=== PATIENT | female | born 1990 | race Caucasian/White ===

== ENCOUNTER 2016-06-19 00:45 | Emergency (ER) | payer BC ==
[2016-06-19] MEDS ORDERED: TRI-SPRINTEC T1 EACH PO (00:55)
[2016-06-19 02:30] VITALS: BP 108/65
== END 2016-06-19 02:30 | disposition home or self-care (01) ==
LOC: ED 00:45
DX: R04.0 Epistaxis (principal)

== ENCOUNTER → 2018-05-08 | Outpatient (CLI) | payer BC ==
[~2018-05-08] MED LIST: TRI-SPRINTEC T1 EACH PO
== END ==
LOC: LAB 11:02
DX: J02.9 Acute pharyngitis, unspecified (principal)

== ENCOUNTER 2020-06-28 19:41 | Emergency (ER) | payer OTHER ==
[2020-06-28] MEDS ORDERED: PRENATAL 19 CH1 EACH PO (20:18)
[2020-06-28 21:46] VITALS: BP 125/74
== END 2020-06-28 21:47 | disposition home or self-care (01) ==
LOC: ED 19:41
DX: S92.531A Displaced fracture of distal phalanx of right lesser toe(s), initial encounter for closed fracture (principal); W22.03XA Walked into furniture, initial encounter; Y92.89 Other specified places as the place of occurrence of the external cause

== ENCOUNTER → 2021-02-02 | Outpatient (CLI) | payer OTHER ==
[~2021-02-02] MED LIST changes: +PRENATAL 19 CH1 EACH PO
== END ==
LOC: LAB 08:52
DX: J02.9 Acute pharyngitis, unspecified (principal)

== ENCOUNTER → 2021-02-03 | Outpatient (CLI) | payer OTHER | LOC: LAB 12:53 | DX: Z20.822 Contact with and (suspected) exposure to COVID-19 (principal) ==

== ENCOUNTER 2022-08-12 11:57 | Emergency (ER) | payer OTHER ==
[~2022-08-12] VITALS: Ht 177.8 cm; Wt 88.4 kg
[2022-08-12] MEDS ORDERED: TRI-SPRINTEC T1 EACH PO (12:25)
[2022-08-12] MEDS ORDERED: CYCLOBENZAPRINE10 M1 PO (13:25)
[2022-08-12 13:52] VITALS: BP 122/89
== END 2022-08-12 14:10 | disposition home or self-care (01) ==
LOC: ED 11:57
DX: S70.02XA Contusion of left hip, initial encounter (principal); S70.12XA Contusion of left thigh, initial encounter; Z28.310 Unvaccinated for COVID-19; V89.2XXA Person injured in unspecified motor-vehicle accident, traffic, initial encounter; Y92.410 Unspecified street and highway as the place of occurrence of the external cause

== ENCOUNTER 2023-06-01 06:52 | Emergency (ER) | payer OTHER ==
[~2023-06-01] VITALS: Ht 177.8 cm; Wt 88.6 kg
[~2023-06-01 06:52] MED LIST changes: +CYCLOBENZAPRINE10 M1 PO
[2023-06-01 06:56] VITALS: BP 121/83
[2023-06-01 08:03] LABS: PH-URINE 5.5 (5.0 - 8.0); URINE APPEARANCE SLIGHTLY CLOUDY (CLEAR); URINE BILIRUBIN NEGATIVE (NEGATIVE); URINE BLOOD 3+ (NEGATIVE); URINE COLOR YELLOW (YELLOW); URINE GLUCOSE NEGATIVE (NEGATIVE); URINE KETONE NEGATIVE (NEGATIVE); URINE LEUKOCYTE ESTERASE NEGATIVE (NEGATIVE); URINE NITRATE NEGATIVE (NEGATIVE); URINE PROTEIN(semi-quant) 3+ (NEGATIVE)
[2023-06-01 08:04] LABS: URINE MUCUS PRESENT (NOT PRESENT)
[2023-06-01] MEDS ORDERED: PYRIDIUM200 M2 PO (09:09)
[2023-06-01] MEDS ORDERED: ACETAMINOPHEN-H1 TA2 PO (09:09)
== END 2023-06-01 09:25 | disposition home or self-care (01) ==
LOC: ED 06:52
PROVIDERS: Physician Assistant
DX: N20.1 Calculus of ureter (principal); B37.49 Other urogenital candidiasis; Z88.5 Allergy status to narcotic agent
CPT/HCPCS: J0696